=== PATIENT | female | born 1955 | race Two or more races ===

== ENCOUNTER 2023-07-18 17:40 | Inpatient (IN) | payer OTHER ==
[~2023-07-18] VITALS: Ht 160 cm; Wt 69.7 kg
[~2023-07-18 17:40] MED LIST: ATOR20TA50 PO; BENZ0.5T19 PO; BLOO1KIT60 XX; DIVA1TAB38 PO; FLUO20CA90 PO; FLUO40CA PO; GLIP2.5T9 PO; HYDRX10T PO; LANC-347 XX; LEVO75TA6 PO; OLAN20TA30 PO
[2023-07-18 21:35] VITALS: PULSE 87; RESP 22; O2SAT 92
[2023-07-18 22:00] VITALS: BP 143/81; PULSE 87; RESP 20; TEMP 99.2; O2SAT 92
[2023-07-18] MEDS ORDERED: MORPHINE SULFATE INJ 2 MG/ml SYRG IV PRN (22:00)
[2023-07-18] MEDS ORDERED: ACETAMINOPHEN 325 MG TAB PO PRN (22:00)
[2023-07-18] MEDS ORDERED: SOD CHL 0.45% 1,000 ML IV SCH (22:00)
[2023-07-18] MEDS ORDERED: NITROGLYCERIN 0.4 MG SL TAB SL PRN (22:00)
[2023-07-18] MEDS ORDERED: ONDANSETRON HCL 4 MG/2 ML VIAL IV PRN (22:00)
[2023-07-18] MEDS ORDERED: METF-869 PO (22:25)
[2023-07-18] MEDS ORDERED: VALB80CA PO (22:25)
[2023-07-18] MEDS ORDERED: TRAZ-228 PO (22:25)
[2023-07-18] MEDS ORDERED: hydrALAZINE HCL 20 MG/ML VL IV PRN (22:30)
[2023-07-18] MEDS: SOD CHL 0.45% 500 ML IV ONE (22:54)
[2023-07-19] VITALS (7 sets, daily range): BP systolic 113–150; BP diastolic 61–74; PULSE 71–98; RESP 16–20; TEMP 98–98.8; O2SAT 92–95
[2023-07-19] MEDS ORDERED: DEXTROSE (50%) 50ML SYRG IV PRN (01:15)
[2023-07-19] MEDS: HYDROcodone-ACET 5/325MG TAB PO PRN (06:02)
[2023-07-19] MEDS: ACCU-CHEK COMFORT CURVE STRIP VI SCH (06:05)
[2023-07-19] MEDS: InsuLIN REG 1unit/0.01ml Soln (100units/ml) SC SCH (06:05)
[2023-07-19 06:07] LABS: Basophils # (auto) 0 10 ^3/uL (0-0.2); Basophils % (auto) 0.5 % (0.0-2.0); Eosinophils # (auto) 0 10 ^3/uL (0-0.8); Eosinophils % (auto) 0.2 % (0.0-7.0); Hematocrit 35.6 % (36.0-46.0); Hemoglobin 11.4 g/dL (12.2-16.2); Lymphocytes # (auto) 2.7 10 ^3/uL (0.4-5.4); Lymphocytes % (auto) 30.9 % (10.0-50.0); Mean Corpuscular Hemoglobin 31.5 pg (28.0-32.0); Mean Corpuscular Hgb Conc. 32.1 g/dL (32.0-36.0); Monocytes # (auto) 0.6 10 ^3/uL (0-1.3); Monocytes % (auto) 6.8 % (0.0-12.0); Neutrophils # (auto) 5.4 10 ^3/uL (1.6-8.6); Neutrophils % (auto) 61.6 % (37.0-80.0); Red Blood Cells 3.63 10^6/uL (4.0-5.20); Red Cell Distribution Width 13.6 % (11.8-14.3); White Blood Cell 8.7 10^3/uL (4.4-10.8)
[2023-07-19 06:19] LABS: Chloride 115 mmol/L (98-107); Sodium 143 mmol/L (136-145)
[2023-07-19 06:20] LABS: Calcium 8.5 mg/dL (8.5-10.1)
[2023-07-19 06:25] LABS: BUN/Creatinine Ratio 7.5 (10.0-20.0); Blood Urea Nitrogen 11 mg/dL (9-23); Glucose 122 mg/dL (74-106)
[2023-07-19 06:52] LABS: Anion Gap 7 (5-15); Carbon Dioxide 21 mmol/L (20-30)
[2023-07-19] MEDS ORDERED: VANCOMYCIN PER PHARMACY 0 MG IV SCH (08:00)
[2023-07-19] MEDS ORDERED: VANCOMYCIN 1GM/200ML 200 ML IV ONE (08:00)
[2023-07-19] MEDS: VANCOMYCIN 1GM/200ML 200 ML IV ONE (10:13)
[2023-07-19 19:54] LABS: Urine Bacteria FEW /hpf (None Seen); Urine Blood Negative /uL (Negative); Urine Clarity Clear (Clear); Urine Color Colorless (Yellow); Urine Protein, UAD Negative (Negative); Urine Urobilinogen Normal (Negative); Urine WBC 1 /hpf (0 - 5)
[2023-07-19] MEDS: traZODone HCL 50 MG TAB PO SCH (21:20)
[2023-07-20 05:00] VITALS: BP 153/83; PULSE 94; RESP 22; TEMP 98.2; O2SAT 97
[2023-07-20 06:10] LABS: Basophils # (auto) 0 10 ^3/uL (0-0.2); Basophils % (auto) 0.3 % (0.0-2.0); Eosinophils # (auto) 0 10 ^3/uL (0-0.8); Eosinophils % (auto) 0.2 % (0.0-7.0); Hematocrit 34.5 % (36.0-46.0); Hemoglobin 11.6 g/dL (12.2-16.2); Lymphocytes # (auto) 2.7 10 ^3/uL (0.4-5.4); Lymphocytes % (auto) 32.1 % (10.0-50.0); Mean Corpuscular Hemoglobin 32.2 pg (28.0-32.0); Mean Corpuscular Hgb Conc. 33.5 g/dL (32.0-36.0); Mean Corpuscular Volume 96.1 fL (80.0-100.0); Monocytes # (auto) 0.5 10 ^3/uL (0-1.3); Monocytes % (auto) 5.3 % (0.0-12.0); Neutrophils # (auto) 5.3 10 ^3/uL (1.6-8.6); Neutrophils % (auto) 62.1 % (37.0-80.0); Nucleated Red Blood Cells % 0.1 %; Red Blood Cells 3.59 10^6/uL (4.0-5.20); Red Cell Distribution Width 13.3 % (11.8-14.3); White Blood Cell 8.5 10^3/uL (4.4-10.8)
[2023-07-20] MEDS: LEVOTHYROXINE SODIUM 25 MCG TAB PO SCH (06:17)
[2023-07-20] MEDS: DOCUSATE SOD 100 MG CAP PO PRN (06:17)
[2023-07-20 06:47] LABS: Alanine Aminotransferase 18 U/L (7-40); Anion Gap 10 (5-15); Aspartate Aminotransferase 30 U/L (13-40); BUN/Creatinine Ratio 11.5 (10.0-20.0); Blood Urea Nitrogen 18 mg/dL (9-23); Calcium 8.7 mg/dL (8.7-10.4); Carbon Dioxide 21 mmol/L (20-30); Chloride 110 mmol/L (98-107); Glucose 92 mg/dL (74-106); Potassium 3.9 mmol/L (3.5-5.1); Sodium 141 mmol/L (136-145)
[2023-07-20 06:58] LABS: Magnesium 1.7 mg/dL (1.6-2.6)
[2023-07-20 07:16] LABS: Triglycerides 105 mg/dL (< 150)
[2023-07-20 07:17] LABS: LDL Cholesterol 48 mg/dL (< 100)
[2023-07-20 07:18] LABS: HDL Cholesterol 44 mg/dL (40-59)
[2023-07-20 07:19] LABS: Cholesterol 114 mg/dL (< 200)
[2023-07-20 08:00] VITALS: PULSE 89; RESP 20; O2SAT 95
[2023-07-20 09:00] VITALS: BP 136/71; PULSE 89; RESP 21; TEMP 97.9; O2SAT 95
[2023-07-20] MEDS: VANCOMYCIN 1GM/200ML 200 ML IV SCH (10:00)
[2023-07-20] MEDS: OLANZapine 5 MG TAB PO SCH (10:01)
[2023-07-20] MEDS: FLUoxetine HCL 20 MG CAP PO SCH (10:01)
[2023-07-20] MEDS: BENZTROPINE MESY 0.5 MG TAB PO SCH (10:01)
[2023-07-20] MEDS: ENOXAPARIN SOD 40 MG/0.4 ML SYRINGE SC SCH (10:01)
[2023-07-20 13:00] VITALS: BP 125/77; PULSE 72; RESP 20; TEMP 98.1; O2SAT 97
[2023-07-20] MEDS ORDERED: AMOX500T86 PO (16:14)
[2023-07-20 16:29] VITALS: BP 125/77; PULSE 72; RESP 20; TEMP 98.1; O2SAT 97
[2023-07-21] MEDS ORDERED: ENOXAPARIN SOD 30 MG/0.3 ML SYRINGE SC SCH (10:00)
== END 2023-07-20 17:15 | disposition home or self-care (01) | DRG 315 ==
LOC: TELE-CENTR 21:01 → UNDOADMIN 21:01 → TELE-CENTR 21:59
PROVIDERS: ADMIT Nurse Practitioner Family; ATTEND Hospitalist
DX: I95.9 Hypotension, unspecified (principal); E87.20 Acidosis, unspecified; E03.9 Hypothyroidism, unspecified; F41.9 Anxiety disorder, unspecified; E78.5 Hyperlipidemia, unspecified; F32.A Depression, unspecified; I11.9 Hypertensive heart disease without heart failure; I49.1 Atrial premature depolarization; E11.9 Type 2 diabetes mellitus without complications; G20.A1 Parkinson's disease without dyskinesia, without mention of fluctuations; Z20.822 Contact with and (suspected) exposure to COVID-19; Z88.8 Allergy status to other drugs, medicaments and biological substances; Z82.49 Family history of ischemic heart disease and other diseases of the circulatory system; Z80.8 Family history of malignant neoplasm of other organs or systems; J40 Bronchitis, not specified as acute or chronic
CPT/HCPCS: 36415; 71045; 80048; 80061; 81001; 82962; 83036; 83735; 83880; 84443; 84450; 84460; 85025; 87040; 93005; 93306; 97110; 97116; 97163; 97530; G0378; J1815

== ENCOUNTER 2024-03-15 10:22 | Inpatient (IN) | payer OTHER ==
[~2024-03-15] VITALS: Ht 160 cm; Wt 69.1 kg
[~2024-03-15 10:22] MED LIST changes: +AMOX500T86 PO; +BENZ0.5T PO; -BENZ0.5T19 PO; -FLUO20CA90 PO; +METF-869 PO; +OLAN1TAB75 PO; -OLAN20TA30 PO; +TRAZ-228 PO; +VALB80CA PO
[2024-03-15] MEDS: SODIUM CHLORIDE 0.9% 1,000 ML IV SCH (13:30)
[2024-03-15] MEDS ORDERED: NITROGLYCERIN 0.4 MG SL TAB SL PRN (13:30)
[2024-03-15] MEDS ORDERED: ONDANSETRON HCL 4 MG/2 ML VIAL IV PRN (13:30)
[2024-03-15] MEDS ORDERED: MORPHINE SULFATE INJ 2 MG/ml SYRG IV PRN ×2 (13:30)
[2024-03-15 13:40] VITALS: BP 118/64
[2024-03-15] MEDS ORDERED: DEXTROSE (50%) 50ML SYRG IV PRN (13:45)
[2024-03-15 14:30] VITALS: BP 118/64; PULSE 88; RESP 17; TEMP 98; O2SAT 97
[2024-03-15 17:00] VITALS: BP 104/54; PULSE 85; RESP 16; TEMP 98.5; O2SAT 92
[2024-03-15] MEDS: ACCU-CHEK COMFORT CURVE STRIP VI SCH (17:00)
[2024-03-15] MEDS: OLANZapine 5 MG TAB PO SCH (17:52)
[2024-03-15] MEDS: ASPirin-EC 81 mg tab PO ONE (18:01)
[2024-03-15] MEDS: InsuLIN REG 1unit/0.01ml Soln (100units/ml) SC SCH (18:06)
[2024-03-15 18:12] LABS: Basophils # (auto) 0 10 ^3/uL (0-0.2); Basophils % (auto) 0.4 % (0.0-2.0); Eosinophils # (auto) 0 10 ^3/uL (0-0.8); Hematocrit 38.4 % (36.0-46.0); Lymphocytes # (auto) 2.5 10 ^3/uL (0.4-5.4); Lymphocytes % (auto) 26.1 % (10.0-50.0); Mean Corpuscular Hemoglobin 32.1 pg (28.0-32.0); Mean Corpuscular Hgb Conc. 33.8 g/dL (32.0-36.0); Mean Corpuscular Volume 95.1 fL (80.0-100.0); Monocytes # (auto) 0.6 10 ^3/uL (0-1.3); Monocytes % (auto) 6.1 % (0.0-12.0); Neutrophils # (auto) 6.4 10 ^3/uL (1.6-8.6); Neutrophils % (auto) 67.4 % (37.0-80.0); Platelet Count (auto) 176 10^3/uL (140-450); Red Blood Cells 4.04 10^6/uL (4.0-5.20); White Blood Cell 9.4 10^3/uL (4.4-10.8)
[2024-03-15 18:38] LABS: INR 0.96 (0.9-1.15); Partial Thromboplastin Time 25.1 SEC (24.5-34.5); Prothrombin Time 10.2 sec (9.3-11.8)
[2024-03-15 20:00] VITALS: PULSE 106; PULSE 109; RESP 18; O2SAT 93
[2024-03-15 20:13] LABS: Alanine Aminotransferase 53 U/L (7-40); Albumin 4.2 g/dL (3.2-4.8); Alkaline Phosphatase 80 U/L (46-116); Anion Gap 11 (5-15); Aspartate Aminotransferase 190 U/L (13-40); BUN/Creatinine Ratio 10.5 (10.0-20.0); Bilirubin, Total 0.3 mg/dL (0.2-1.0); Blood Urea Nitrogen 19 mg/dL (9-23); Calcium 9.3 mg/dL (8.7-10.4); Carbon Dioxide 19 mmol/L (20-31); Chloride 115 mmol/L (98-107); Glucose 290 mg/dL (74-106); Sodium 145 mmol/L (136-145); Total Protein 6.3 g/dL (5.7-8.2)
[2024-03-15] MEDS: ENOXAPARIN SOD 80 MG/0.8ML SYRINGE SC ONE (20:56)
[2024-03-15 21:00] VITALS: BP 133/87; PULSE 106; RESP 18; TEMP 98.7; O2SAT 93
[2024-03-15] MEDS: ATORVASTATIN 20 MG TAB PO SCH (23:22)
[2024-03-15] MEDS: traZODone HCL 50 MG TAB PO SCH (23:23)
[2024-03-16] VITALS (8 sets, daily range): BP systolic 130–172; BP diastolic 65–85; PULSE 72–98; RESP 16–18; TEMP 97.9–99.2; O2SAT 91–97
[2024-03-16 06:01] LABS: Basophils # (auto) 0 10 ^3/uL (0-0.2); Basophils % (auto) 0.3 % (0.0-2.0); Eosinophils # (auto) 0 10 ^3/uL (0-0.8); Hematocrit 36.5 % (36.0-46.0); Hemoglobin 12.8 g/dL (12.2-16.2); Lymphocytes # (auto) 2.3 10 ^3/uL (0.4-5.4); Lymphocytes % (auto) 25.1 % (10.0-50.0); Mean Corpuscular Hemoglobin 33.2 pg (28.0-32.0); Mean Corpuscular Volume 94.9 fL (80.0-100.0); Monocytes # (auto) 0.4 10 ^3/uL (0-1.3); Monocytes % (auto) 4.9 % (0.0-12.0); Neutrophils # (auto) 6.3 10 ^3/uL (1.6-8.6); Neutrophils % (auto) 69.7 % (37.0-80.0); Platelet Count (auto) 174 10^3/uL (140-450); Red Blood Cells 3.84 10^6/uL (4.0-5.20); Red Cell Distribution Width 14.2 % (11.8-14.3)
[2024-03-16 06:09] LABS: Alanine Aminotransferase 56 U/L (7-40); Alkaline Phosphatase 79 U/L (46-116); Anion Gap 14 (5-15); Aspartate Aminotransferase 177 U/L (13-40); BUN/Creatinine Ratio 11.1 (10.0-20.0); Blood Urea Nitrogen 17 mg/dL (9-23); Carbon Dioxide 18 mmol/L (20-31); Chloride 112 mmol/L (98-107); Glucose 188 mg/dL (74-106); Potassium 4.3 mmol/L (3.5-5.1); Sodium 144 mmol/L (136-145)
[2024-03-16 06:10] LABS: Bilirubin, Total 0.6 mg/dL (0.2-1.0); Total Protein 5.8 g/dL (5.7-8.2)
[2024-03-16 06:26] LABS: Creatine Kinase IFCC 10421 U/L (34-145)
[2024-03-16] MEDS: LEVOTHYROXINE SODIUM 100 MCG TAB PO SCH (06:48)
[2024-03-16] MEDS: BENZTROPINE MESY 0.5 MG TAB PO SCH (09:31)
[2024-03-16] MEDS: ASPirin-EC 81 mg tab PO SCH (09:31)
[2024-03-16] MEDS: ENOXAPARIN SOD 80 MG/0.8ML SYRINGE SC SCH (09:32)
[2024-03-16] MEDS: CITALOPRAM HYDROBR 20 MG TAB PO SCH (09:32)
[2024-03-16] MEDS: CARBIDOPA W LEVODOPA 10/100mg TABLET PO SCH (22:22)
[2024-03-17 01:00] VITALS: BP 121/61; PULSE 65; RESP 18; TEMP 98.7; O2SAT 100
[2024-03-17 06:31] LABS: Basophils # (auto) 0 10 ^3/uL (0-0.2); Basophils % (auto) 0.3 % (0.0-2.0); Eosinophils # (auto) 0 10 ^3/uL (0-0.8); Hematocrit 37.4 % (36.0-46.0); Hemoglobin 12.7 g/dL (12.2-16.2); Lymphocytes # (auto) 2.1 10 ^3/uL (0.4-5.4); Lymphocytes % (auto) 21.5 % (10.0-50.0); Mean Corpuscular Hemoglobin 32.2 pg (28.0-32.0); Mean Corpuscular Hgb Conc. 33.9 g/dL (32.0-36.0); Mean Corpuscular Volume 95.1 fL (80.0-100.0); Monocytes # (auto) 0.5 10 ^3/uL (0-1.3); Monocytes % (auto) 5.4 % (0.0-12.0); Neutrophils # (auto) 7.2 10 ^3/uL (1.6-8.6); Neutrophils % (auto) 72.8 % (37.0-80.0); Platelet Count (auto) 182 10^3/uL (140-450); Red Blood Cells 3.93 10^6/uL (4.0-5.20); Red Cell Distribution Width 13.8 % (11.8-14.3); White Blood Cell 9.8 10^3/uL (4.4-10.8)
[2024-03-17 06:37] LABS: Chloride 110 mmol/L (98-107); Potassium 4.2 mmol/L (3.5-5.1); Sodium 142 mmol/L (136-145)
[2024-03-17 06:38] LABS: Anion Gap 14 (5-15); Calcium 9.2 mg/dL (8.7-10.4); Carbon Dioxide 18 mmol/L (20-31)
[2024-03-17 06:43] LABS: BUN/Creatinine Ratio 12.2 (10.0-20.0); Blood Urea Nitrogen 18 mg/dL (9-23); Glucose 168 mg/dL (74-106)
[2024-03-17 08:00] VITALS: PULSE 105; PULSE 73; RESP 18; O2SAT 95
[2024-03-17 09:00] VITALS: BP 92/54; PULSE 73; RESP 18; TEMP 98.6; O2SAT 95
[2024-03-17] MEDS ORDERED: OLAN1TAB75 PO (12:27)
[2024-03-17] MEDS ORDERED: ASPI81TA28 PO (12:27)
[2024-03-17] MEDS ORDERED: TRAZ-228 PO (12:27)
[2024-03-17 13:07] VITALS: BP 98/66; PULSE 91; RESP 17; TEMP 98.3; O2SAT 96
[2024-03-17 16:10] VITALS: TEMP 97.6
[2024-03-17 16:26] VITALS: BP 103/67; PULSE 104; RESP 17; TEMP 98.4; O2SAT 94
== END 2024-03-17 18:15 | disposition home or self-care (01) | DRG 73 ==
LOC: TELE-EAST 13:23
PROVIDERS: ADMIT Hospitalist; ATTEND Hospitalist
DX: G90.89 Other disorders of autonomic nervous system (principal); N17.0 Acute kidney failure with tubular necrosis; G20.A1 Parkinson's disease without dyskinesia, without mention of fluctuations; E11.22 Type 2 diabetes mellitus with diabetic chronic kidney disease; E03.9 Hypothyroidism, unspecified; E78.5 Hyperlipidemia, unspecified; F32.A Depression, unspecified; F41.9 Anxiety disorder, unspecified; I12.9 Hypertensive chronic kidney disease with stage 1 through stage 4 chronic kidney disease, or unspecified chronic kidney disease; I70.0 Atherosclerosis of aorta; F42.9 Obsessive-compulsive disorder, unspecified; N18.9 Chronic kidney disease, unspecified; Z80.8 Family history of malignant neoplasm of other organs or systems; Z82.49 Family history of ischemic heart disease and other diseases of the circulatory system
CPT/HCPCS: 36415; 70551; 80048; 80053; 80164; 82550; 82962; 84439; 84443; 84484; 85025; 85610; 85730; 93306; 96372; 97110; 97116; 97163; 97530; G0378; J1815